=== PATIENT | female | born 1935 | race Caucasian/White ===

== ENCOUNTER → 2024-07-06 07:57 | Outpatient (REF) | payer MEDICARE, SELFPAY ==
--- NOTE | 2024-07-06 08:04 | CA_ITS ---
Transthoracic Echocardiogram Patient (Last, First, Middle): Candice Perry, Gender: Female Date of : 1935 Age: 89 Procedure Date: 07/06/2024 Procedure Type: Transthoracic Echocardiogram Location: OP Height: 162.56 cm Weight: 58.06 kg BSA: 1.62 m2 Heart Rate: bpm BP: 115 / 60 mmHg Cilnical Scientist: Referring MD: Daphne Martins MD Enrollment Services Dean: Shreyas Elizalde MD Symptoms: SYSTOLIC MURMUR Study Quality: Fair ECG Rhythm: Sinus Conclusions: - 1. Normal LV ejection fraction of 60 65% with mild LVH with elevated filling pressures 2. Mild calcific aortic stenosis 3. Normal RV systolic pressure 4. Upper limits of normal ascending aortic size 5. No gross pericardial effusion Findings Left Ventricle Normal left ventricular size and systolic function. There is mildly increased left ventricular wall thickness. The visually estimated ejection fraction is between 60-65%. Spectral Doppler is indicative of an impaired relaxation filling pattern. Elevated filling pressures. Right Ventricle Normal right ventricular cavity size and systolic function. Atria Both atria are normal in size. There is no evidence of interatrial shunt. Aortic Valve There is mild calcification of the aortic valve. There is mild thickening of the aortic valve. There is mild aortic valve stenosis. The mean gradient is 6 mmHg. The aortic valve area is 1.94 cm2. There is no aortic valve regurgitation. Mitral Valve There is mild anterior and moderate posterior mitral leaflet thickening. There is mild mitral annular calcification. There is trace mitral valve regurgitation. There is no mitral valve stenosis. Pulmonic Valve The pulmonic valve was not well visualized. Tricuspid Valve Likely normal tricuspid valve structure and function. There is trace tricuspid valve regurgitation. The right ventricular systolic pressure is normal. Normal right atrial pressure. There is no evidence of pulmonary hypertension. Great Vessels The pulmonary artery was not well visualized. Small plaque is seen in the sino tubular ridge and ascending aorta. Venous The inferior vena cava is normal in size and collapses greater than 50% with inspiration. Pericardium/Pleural There is no evidence of pericardial effusion. Prior Study Comparison No prior study available for comparison. Measurements 2D Linear Measurements IVSd: 1.30 0.6-0.9/0.6-1.0 cm LVIDd: 2.80 3.9-5.3/4.2-5.9 cm LVIDd Index: 1.73 2.4-3.2/2.2-3.1 cm/m2 LVIDs: 1.85 2.0-3.6 cm LVPWd: 1.30 0.7-1.1 cm Ao Root: 3.50 2.1-3.5 cm LA Diam: 2.50 2.7-3.8/3.0-4.0 cm LAIDs Index: 1.54 1.5-2.3 cm/m2 LV Mass: 140.93 67-162/88-224 g LV Mass Index: 87.00 43-95/49-115 g/m2 LVOT Diam: 1.90 3.0+(-)1.3 cm 2D Systolic Function EF 4C: 64.30 >55% EF 2C: 60.80 >55% EF BiP: 61.70 >55% Mitral Valve MV Pk E: 0.60 MV PK A: 1.27 MV Decel Time: 229.00 E/A: 0.50 E'Lateral: 4.03 E'Medial: 3.26 E/E' Med: 18.40 E/E' Lat: 14.90 PHT: 67.00 MVA PHT: 3.28 Decel [place]: 2.62 Aortic Valve AoV Pk Manas: 1.79 AoV Mn Manas: 1.12 AoV VTI: 0.35 AoV Pk Grad: 13.00 Aov Mn Grad: 6.00 HEATHER Cont.VTI: 1.94 LVOT LVOT Pk Manas: 1.02 LVOT Mn Manas: 0.64 LVOT VTI: 0.24 LVOT Pk Grad: 4.00 LVOT Mn Grad: 2.00 LVOT Diam: 1.90 LVOT Area: 2.84 Diastolic Function MV Pk E: 0.60 MV Pk A: 1.27 E/A: 0.50 E'Medial: 3.26 E/E' Med: 18.40 E' Laterial: 4.03 E/E' Lat: 14.90 Right Ventricle TAPSE (mm): 23.00 Tricuspid Valve TR Pk Manas: 2.06 TR Pk Grad: 17.00 RA Press: 3.00 RVSP: 20.00 Great Vessels Aorta Ao Root-2D: 3.50 2.0-3.7 cm Ao Asc: 3.50 2.1-3.4 cm Pulmonary Valve PV Pk Manas: 1.01 Peak PV Grad: 4.00 Updated in Other Vendor System with Status of Final Shreyas Elizalde MD electronically signed on 07/06/2024 3:17:48 PM with status of Final
== END ==
LOC: HO.CARD 07:57
PROVIDERS: PCP Internal Medicine; Visit Provider Internal Medicine
DX: R01.1 Cardiac murmur, unspecified (principal)
CPT/HCPCS: 93306

== ENCOUNTER → 2024-07-06 08:04 | Outpatient (BNV) | payer MEDICARE, SELFPAY | PROVIDERS: PCP Internal Medicine; Visit Provider Internal Medicine Cardiovascular Disease | DX: I35.0 Nonrheumatic aortic (valve) stenosis (principal); I34.81 Nonrheumatic mitral (valve) annulus calcification | CPT/HCPCS: 93306 ==